=== PATIENT | female | born 2000 | race Caucasian/White ===

== ENCOUNTER 2020-04-09 14:57 | Inpatient (IN) | payer MEDICAID, SELFPAY ==
[2020-04-09 15:08] VITALS: BP 180/116; PULSE 110; RESP 22; TEMP 36.9; O2SAT 96; BMI 44.1
[2020-04-09 16:05] VITALS: BP 136/80; PULSE 114; RESP 16; O2SAT 98
--- NOTE | 2020-04-09 16:05 | ECG_ITS ---
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 Measurements Intervals [place] Rate: 109 P: 25 FL: 161 QRS: 41 QRSD: 71 T: 7 QT: 295 QTc: 399 Interpretive Statements SINUS TACHYCARDIA NONSPECIFIC T-WAVE ABNORMALITY ABNORMAL RHYTHM ECG No previous ECG available for comparison Electronically Signed On 04-09-2020 20:22:37 AMMUNITION OFFICER by Samson Rodriguez M.D. [id number]
--- NOTE | 2020-04-09 16:05 | XRR_ITS ---
PROCEDURE INFORMATION: Exam: XR Chest, 1 View Exam date and time: 04/09/2020 4:14 PM Age: 19 years old Clinical indication: Shortness of breath; Additional info: SOB TECHNIQUE: Imaging protocol: XR of the chest Views: 1 view. COMPARISON: No relevant prior studies available. FINDINGS: Lungs: Bilateral interstitial infiltrates, consistent with pulmonary edema versus bilateral pneumonia. Pleural space: No pleural effusion. No pneumothorax. Heart/Mediastinum: No cardiomegaly demonstrated. Bones/joints: Unremarkable. XR/XR chest 1V portable [id number] IMPRESSION: Bilateral interstitial infiltrates, consistent with pulmonary edema versus bilateral pneumonia.
--- NOTE | 2020-04-09 16:30 | ED_ITS ---
HPI - SOB/Dyspnea General: Chief Complaint: Shortness of Breath/Dyspnea Stated Complaint: shortness of breath/post Time Seen by Provider: 04/09/20 15:15 Source: patient Mode of arrival: ambulatory Limitations: no limitations History of Present Illness: HPI Narrative: The patient is a 19-year-old female who recently had a delivery of a live infant by section on 04/05/2020. She had a delivery done at [facility] in [place]. She had a because of intolerance of labor, gestational hypertension, maternal fever and morbid obesity and failure to progress. She was treated postoperatively with ampicillin and gentamicin and after some time it was switched to Zosyn and vancomycin because she continued to run fingers postoperatively. On day #3 she developed severe hypertension that did not respond to oral medications and she was transferred to the labor and delivery for management of the elevated blood pressure with magnesium sulfate. Apparently at that time the patient signed out AGAINST MEDICAL ADVICE. I got all the above information from her medical records. The patient states that she received very poor communication while she was there and was not informed as to why she was getting the medications she was getting. She did not feel very comfortable there and so signed out AGAINST MEDICAL ADVICE. The patient states that she has been feeling short of breath since yesterday and when she checked her oxygen saturation today it was in the 80s and because of these decided to come in here for evaluation. MD elicited complaint: shortness of breath Associated symptoms: Deny abdominal pain, fever(s), nausea, palpitations, p olydipsia, polyuria or vomiting Review of Systems General: Reports: 10 or more systems reviewed and unremarkable except in HPI and below Const: Denies: fever(s), chills or body aches Eyes: Denies: change in vision or blurry vision ENMT: Denies: throat pain, enlarged tonsils, odynophagia, hoarseness, mouth pain or swelling of lips/tongue Card: Denies: palpitations, irregular heart rhythm, edema or swelling of feet/ankles Resp: Reports: dyspnea and non-productive cough; Denies: productive cough GI: Denies: abdominal pain, nausea or vomiting : Denies: flank pain, difficulty voiding, dysuria, urinary frequency, urinary urgency or urinary hesitancy Musc: Denies: neck pain, back pain or extremity swelling Skin/Breast: Denies: rash, pruritus or erythema Neuro: Denies: headache(s), numbness in extremities or weakness in extremities Endo: Denies: polyuria, polydipsia or tired all the time PFSH ED PFSH: Medical History Anemia Bulimia Family History Other Patient denies medical problems Social History Smoking and tobacco status: never smoked Alcohol intake: never Physical Exam Const: COMMON NORMALS: no acute distress, average body habitus, patient oriented x3, no limitations, healthy appearing, alert and well nourished HENMT: COMMON NORMALS: normocephalic, atraumatic and moist oral mucous membranes HEAD & SCALP: normocephalic and atraumatic Neck/C-Spine: COMMON NORMALS: no meningeal signs and no JVD Resp: COMMON NORMALS: normal respiratory effort, No retractions, No use of accessory muscles, clear to auscultation bilaterally and percussion normal AUSCULTATION: clear to auscultation bilaterally PERCUSSION: percussion normal Cardio: COMMON NORMALS: no JVD, regular rate, regular rhythm, S1 normal heart sound present, S2 normal heart sound present, No gallops present (Cardio), No clicks present (Cardio), No murmurs present (Cardio), No rub (Cardio) and Peripheral pulses 2+ throughout RATE: regular rate RHYTHM: regular rhythm HEART SOUNDS: S1 normal heart sound present and S2 normal heart sound present PERIPHERAL PULSES: Peripheral pulses 2+ throughout GI: COMMON NORMALS: Normal to inspection, nondistended, normoactive bowel sounds present, Soft to palpation, non-tender, No hepatosplenomegaly present, no masses and no bruits PALPATION: Yes Soft to palpation and Yes No hepatosplenomegaly present Extremity: COMMON NORMALS: normal to inspection, full ROM, capillary refill normal, no calf tenderness and no pedal edema Neuro: COMMON NORMALS: patient oriented x3 SENSORIUM/ORIENTATION: Yes alert MENINGEAL SIGNS: Yes no meningeal signs Skin: COMMON NORMALS: no rashes or lesions noted, no wounds, turgor normal, no jaundice, no petechiae and no mottling GENERAL SKIN EXAM: no rashes or lesions noted and turgor normal Course Reevaluation(s): Reevaluation #1: Discussed her lab and imaging findings with her, as well as my conversation with the web support engineer and the car lot attendant. Her lab findings are concerning for cardiomyopathy and she is advised to be admitted to the hospital for further work-up. The patient would really like to be discharged home, however I explained to her the risks of discharge including worsening of her symptoms and even . I understand that she would like to stay with her baby however strongly counseled her to stay in the hospital. She eventually agreed to be admitted. Time: 19:20 Consultations: Consultation #1: Discussed the patient with Dr. Montanez, web support engineer on-call and she accepted the patient to her service but would like cardiology consult. Time: 19:09 Consultation #2: Discussed the patient with Dr. Rodriguez, car lot attendant. He would consult on this patient, however he wants me to order an echocardiogram for tonight. Time: 19:13 Vital Signs: Vital signs: Vital Signs Temperature 98.4 F 04/09/20 15:08 Pulse Rate 110 H 04/09/20 20:43 Respiratory Rate 18 04/09/20 20:43 Blood Pressure 155/85 04/09/20 20:43 Pulse Oximetry 96 04/09/20 20:43 MDM - SOB/Dyspnea MDM Narrative: Medical decision making narrative: 19-year-old female patient who had a delivery 4 days ago. Delivery and period was complicated by fever before delivery, postoperative fever as well as hypertension. The patient was not satisfied with the care she was receiving at [facility] in [place], so she signed out AGAINST MEDICAL ADVICE yesterday. Today she was short of breath and hypoxic at home. Evaluation in the emergency department is concerning for cardiomyopathy with significantly elevated proBNP levels, pulmonary edema on chest x-ray and CT of her lungs. She is given a dose of intravenous Lasix and is admitted to the cardiac stepdown unit for further evaluation and management. Medical Records: Attestation: I reviewed the patient's medical records. Lab Data: Attestation: I reviewed the patient's lab results. Labs: Lab Results 04/09/20 04/09/20 04/09/20 Range/Units 16:00 16:30 16:30 WBC 10.6 (4.5-13.0) 10^3/ uL RBC 3.44 L (4.1-5.3) 10^6/u L Hgb 9.4 L (11.5-15.3) g/dL Hct 30.1 L (37.0-47.0) % MCV 87.5 (81-99) fL MCH 27.3 L (28.0-34.0) pg MCHC 31.2 (30.0-36.0) g/dL RDW 14.5 (12.1-15.1) % Plt Count 358 (130-400) 10^3/c mm MPV 10.0 (7.4-10.4) fL Neut % (Auto) 78.1 % Lymph % (Auto) 12.4 % Gordon % (Auto) 6.6 % Eos % (Auto) 1.0 % Baso % (Auto) 0.4 % Neut # (Auto) 8.24 H (1.8-8.0) 10^3/u L Lymph # (Auto) 1.3 L (1.5-6.5) 10^3/u L Gordon # (Auto) 0.7 (0.2-0.9) 10^3/u L Eos # (Auto) 0.1 (0.0-0.8) 10^3/u L Baso # (Auto) 0.0 (0.0-0.1) 10^3/u L Nucleated RBC % (a uto) 0 % Nucleated RBCs # 0.0 /100WBC PT 13.90 (12.1-14.9) SECO NDS INR 1.03 (0.8-1.2) D-Dimer 2.48 H (0-0.59) ug/mIFE U Sodium 141 (136-145) mmol/L Potassium 3.6 (3.5-5.1) mmol/L Chloride 106 (98-107) mmol/L Carbon Dioxide 24 (22-29) mmol/L Anion Gap 14.6 (5-19) BUN 14 (6-20) mg/dL Creatinine 0.8 (0.5-0.9) mg/dL GFR Calculation 91.4 (90-130) mL/min Glucose 91 (65-115) mg/dL Calculated Osmolal ity 292 (285-295) mOsm/k g Lactic Acid (0.5-2.2) mmol/L Calcium 8.7 (8.5-10.5) mg/dL Total Bilirubin 0.2 (0.15-1.2) mg/dL AST 14 (0-32) U/L ALT 13 (0-33) U/L Alkaline Phosphata se 105 (35-105) IU/L NT-Pro-B Natriuret Pep 1701 H (0-125) pg/mL Total Protein 5.8 L (6.6-8.7) g/dL Albumin 2.9 L (3.5-5.2) g/dL Globulin 2.9 (1.3-4.6) g/dL Urine Color (Yellow) Urine Appearance (CLEAR) Urine pH (5-7) Ur Specific Gravit y (1.005-1.030) Urine Protein (Negative) Urine Glucose (UA) (Normal) Urine Ketones (Negative) Urine Blood (Negative) Urine Nitrate (Negative) Urine Bilirubin (Negative) Urine Urobilinogen (Negative) mg/dL Ur Leukocyte Christelle ase (Negative) Urine RBC (0-2) /hpf Urine WBC (0-5) /hpf Ur Squamous Epith Cells (0-5) /hpf Amorphous Sediment Urine Bacteria (NONE) /hpf Influenza Type A A g (Negative) Influenza Type B A g (Negative) SARS-CoV-2 Ag (Rap id) (Negative) 04/09/20 04/09/20 04/09/20 Range/Units 16:30 16:30 16:30 WBC (4.5-13.0) 10^3/ uL RBC (4.1-5.3) 10^6/u L Hgb (11.5-15.3) g/dL Hct (37.0-47.0) % MCV (81-99) fL MCH (28.0-34.0) pg MCHC (30.0-36.0) g/dL RDW (12.1-15.1) % Plt Count (130-400) 10^3/c mm MPV (7.4-10.4) fL Neut % (Auto) % Lymph % (Auto) % Gordon % (Auto) % Eos % (Auto) % Baso % (Auto) % Neut # (Auto) (1.8-8.0) 10^3/u L Lymph # (Auto) (1.5-6.5) 10^3/u L Gordon # (Auto) (0.2-0.9) 10^3/u L Eos # (Auto) (0.0-0.8) 10^3/u L Baso # (Auto) (0.0-0.1) 10^3/u L Nucleated RBC % (a uto) % Nucleated RBCs # /100WBC PT (12.1-14.9) SECO NDS INR (0.8-1.2) D-Dimer (0-0.59) ug/mIFE U Sodium (136-145) mmol/L Potassium (3.5-5.1) mmol/L Chloride (98-107) mmol/L Carbon Dioxide (22-29) mmol/L Anion Gap (5-19) BUN (6-20) mg/dL Creatinine (0.5-0.9) mg/dL GFR Calculation (90-130) mL/min Glucose (65-115) mg/dL Calculated Osmolal ity (285-295) mOsm/k g Lactic Acid 0.8 (0.5-2.2) mmol/L Calcium (8.5-10.5) mg/dL Total Bilirubin (0.15-1.2) mg/dL AST (0-32) U/L ALT (0-33) U/L Alkaline Phosphata se (35-105) IU/L NT-Pro-B Natriuret Pep (0-125) pg/mL Total Protein (6.6-8.7) g/dL Albumin (3.5-5.2) g/dL Globulin (1.3-4.6) g/dL Urine Color (Yellow) Urine Appearance (CLEAR) Urine pH (5-7) Ur Specific Gravit y (1.005-1.030) Urine Protein (Negative) Urine Glucose (UA) (Normal) Urine Ketones (Negative) Urine Blood (Negative) Urine Nitrate (Negative) Urine Bilirubin (Negative) Urine Urobilinogen (Negative) mg/dL Ur Leukocyte Christelle ase (Negative) Urine RBC (0-2) /hpf Urine WBC (0-5) /hpf Ur Squamous Epith Cells (0-5) /hpf Amorphous Sediment Urine Bacteria (NONE) /hpf Influenza Type A A g Negative (Negative) Influenza Type B A g Negative (Negative) SARS-CoV-2 Ag (Rap id) Negative (Negative) 04/09/20 Range/Units 18:25 WBC (4.5-13.0) 10^3/ uL RBC (4.1-5.3) 10^6/u L Hgb (11.5-15.3) g/dL Hct (37.0-47.0) % MCV (81-99) fL MCH (28.0-34.0) pg MCHC (30.0-36.0) g/dL RDW (12.1-15.1) % Plt Count (130-400) 10^3/c mm MPV (7.4-10.4) fL Neut % (Auto) % Lymph % (Auto) % Gordon % (Auto) % Eos % (Auto) % Baso % (Auto) % Neut # (Auto) (1.8-8.0) 10^3/u L Lymph # (Auto) (1.5-6.5) 10^3/u L Gordon # (Auto) (0.2-0.9) 10^3/u L Eos # (Auto) (0.0-0.8) 10^3/u L Baso # (Auto) (0.0-0.1) 10^3/u L Nucleated RBC % (a uto) % Nucleated RBCs # /100WBC PT (12.1-14.9) SECO NDS INR (0.8-1.2) D-Dimer (0-0.59) ug/mIFE U Sodium (136-145) mmol/L Potassium (3.5-5.1) mmol/L Chloride (98-107) mmol/L Carbon Dioxide (22-29) mmol/L Anion Gap (5-19) BUN (6-20) mg/dL Creatinine (0.5-0.9) mg/dL GFR Calculation (90-130) mL/min Glucose (65-115) mg/dL Calculated Osmolal ity (285-295) mOsm/k g Lactic Acid (0.5-2.2) mmol/L Calcium (8.5-10.5) mg/dL Total Bilirubin (0.15-1.2) mg/dL AST (0-32) U/L ALT (0-33) U/L Alkaline Phosphata se (35-105) IU/L NT-Pro-B Natriuret Pep (0-125) pg/mL Total Protein (6.6-8.7) g/dL Albumin (3.5-5.2) g/dL Globulin (1.3-4.6) g/dL Urine Color Yellow (Yellow) Urine Appearance Clear (CLEAR) Urine pH 7 (5-7) Ur Specific Gravit y 1.010 (1.005-1.030) Urine Protein Neg (Negative) Urine Glucose (UA) Norm (Normal) Urine Ketones 1+ H (Negative) Urine Blood 3+ H (Negative) Urine Nitrate Negative (Negative) Urine Bilirubin Neg (Negative) Urine Urobilinogen Norm (Negative) mg/dL Ur Leukocyte Christelle ase Negative (Negative) Urine RBC 5-10 H (0-2) /hpf Urine WBC 10-15 H (0-5) /hpf Ur Squamous Epith Cells Rare (0-5) /hpf Amorphous Sediment Not Reportable Urine Bacteria Trace (NONE) /hpf Influenza Type A A g (Negative) Influenza Type B A g (Negative) SARS-CoV-2 Ag (Rap id) (Negative) Imaging Data^: CTA Chest: Attestation: I personally reviewed and interpreted this imaging study as follows: Radiologist's impression: [address] [address] [address] Scan Report Signed Patient: Lo Cortes BUnit #: [id number] : 2000Acct#:[id number] Age/Sex: 19 / FADM Date: 04/09/20 Loc: ERRoom/Bed: Attending Dr: Ordering Provider/Ordering MD: Bryan Bryan MD, [facility] [place] of Service: 04/09/20 Procedure(s): CT angio chest PE protcl [id number] Accession Number(s): [id number] Report Number: [id number] PROCEDURE INFORMATION: Exam: CT Angiography Chest With Contrast Exam date and time: 04/09/2020 6:22 PM Age: 19 years old Clinical indication: Shortness of breath; Additional info: SOB TECHNIQUE: Imaging protocol: Computed tomographic angiography of the chest with intravenous contrast. 3D rendering (Not supervised by radiologist): MIP and/or 3D reconstructed images were created by the technologist. Radiation optimization: All CT scans at this facility use at least one of these dose optimization techniques: automated exposure control; mA and/or kV adjustment per patient size (includes targeted exams where dose is matched to clinical indication); or iterative reconstruction. Contrast material: OMNI 350; Contrast volume: 95 ml; Contrast route: INTRAVENOUS (IV); COMPARISON: CR (CHEST, ) 04/09/2020 4:12 PM RADIATION DOSE METRICS: Total DLP (mGy-cm): 587.49 FINDINGS: Pulmonary arteries: Pulmonary arteries are well opacified. Pulmonary arteries are normal in caliber. No filling defects are demonstrated. No evidence of pulmonary embolism. Aorta: The thoracic aorta appears unremarkable. No aneurysm or dissection demonstrated. Lungs: Prominence of the pulmonary interstitium bilaterally. Minimal airspace disease scattered throughout both lungs. Dependent atelectasis noted in the bilateral lower lobes. Pleural space: Small bilateral pleural effusions. No pneumothorax. Heart: Mild cardiomegaly is noted. No pericardial effusion. Lymph nodes: Unremarkable. No enlarged lymph nodes. Bones/joints: Unremarkable. No acute fracture. Soft tissues: Unremarkable. CT/CT angio chest PE protcl [id number] IMPRESSION: 1. Pulmonary arteries appear unremarkable. No evidence of pulmonary embolism. 2. No evidence of thoracic aortic aneurysm or dissection. 3. Mild cardiomegaly is noted. 4. Prominence of the pulmonary interstitium bilaterally. Minimal airspace disease scattered throughout both lungs. The appearance is likely represents pulmonary edema, although bilateral pneumonia can give a similar appearance. 5. Small bilateral pleural effusions. Radiation Dose CTDIVOL = (mGy): DLP = 587.49 (mGy-cm) Dictated By:Fracisco Johnson MD Signed By:Fracisco Johnson MDSigned Date/Time:04/09/201852 DD/ 51 CXR: Attestation: I personally reviewed and interpreted this imaging study as follows: Radiologist's impression: [address] [place] [address] XRay Report Signed Patient: Lo Cortes BUnit #: [id number] : 2000Acct#:[id number] Age/Sex: 19 / FADM Date: 04/09/20 Loc: ERRoom/Bed: Attending Dr: Ordering Provider/Ordering MD: Bryan Bryan MD, [facility] [place] of Service: 04/09/20 Procedure(s): XR chest 1V portable [id number] Accession Number(s): [id number] Report Number: [id number] PROCEDURE INFORMATION: Exam: XR Chest, 1 View Exam date and time: 04/09/2020 4:14 PM Age: 19 years old Clinical indication: Shortness of breath; Additional info: SOB TECHNIQUE: Imaging protocol: XR of the chest Views: 1 view. COMPARISON: No relevant prior studies available. FINDINGS: Lungs: Bilateral interstitial infiltrates, consistent with pulmonary edema versus bilateral pneumonia. Pleural space: No pleural effusion. No pneumothorax. Heart/Mediastinum: No cardiomegaly demonstrated. Bones/joints: Unremarkable. XR/XR chest 1V portable [id number] IMPRESSION: Bilateral interstitial infiltrates, consistent with pulmonary edema versus bilateral pneumonia. Dictated By:Fracisco Johnson MD Signed By:Fracisco Johnson MDSigned Date/Time:04/09/201626 DD/ 162 Echo: Radiologist's impression: [address] [address] Ultrasound Report Signed Patient: Lo Cortes BUnit #: [id number] : 2000Acct#:[id number] Age/Sex: 19 / FADM Date: 04/09/20 Loc: CSURoom/Bed: 103-[address]: Laura Montanez MD Ordering Provider/Ordering MD: Bryan Bryan MD, [facility] [place] of Service: 04/09/20 Procedure(s): CV echo complete* [id number] Accession Number(s): [id number] Report Number: [id number] Lo Cortes Age: 19 Gender: F : 2000 Exam Date: 04/09/2020 19:58 Ordering Phys: Bryan Bryan MD [facility] [place] Technologist: La Nena Srinivasan Exam Location: [facility] [place] Indication: POST 4 DAYS AND SOB BP: 122 / 93 HR: 109 Rhythm: Sinus Technical Quality: Fair MEASUREMENTS (Male / Female) Normal Values 2D ECHO LV Diastolic Diameter PLAX 4.9 cm 4.2 - 5.9 / 3.9 - 5.3 cm LV Systolic Diameter PLAX 3.2 cm LV Chamber Size 3.0 cm IVS Diastolic Thickness 1.6 cm 0.6 - 1.0 / 0.6 - 0.9 cm IVS Systolic Thickness 1.5 cm LVPW Diastolic Thickness 1.5 cm 0.6 - 1.0 / 0.6 - 0.9 cm LVPW Systolic Thickness 1.8 cm RV Chamber Size 3.7 cm LVOT Diameter 3.2 cm LV Ejection Fraction 2D Teich 64.5 % LV Ejection Fraction MOD 2C 60.7 % LV Ejection Fraction 2C AL 61.3 % LA Diameter 3.4 cm LA Width 2.7 cm LA Height 4.0 cm RA Width 4.1 cm RA Height 4.0 cm Aorta at Sinotubular Diameter 2.7 cm M-MODE LV Diastolic Diameter MM 5.1 cm 4.2 - 5.9 / 3.9 - 5.3 cm LV Systolic Diameter MM 3.4 cm LV Ejection Fraction MM Teich 63.4 % IVS Diastolic Thickness MM 1.4 cm 0.6 - 1.0 / 0.6 - 0.9 cm IVS Systolic Thickness MM 1.6 cm LVPW Diastolic Thickness MM 1.4 cm 0.6 - 1.0 / 0.6 - 0.9 cm LVPW Systolic Thickness MM 2.0 cm RV Diastolic Diameter MM 2.1 cm Aortic Annulus Diameter 1.7 cm LA Ao Ratio MM 1.5 MV E Point Septal Separation 0.5 cm DOPPLER AV Peak Velocity 213.3 cm/s LVOT Peak Velocity 136.7 cm/s AV Area Cont Eq vti 5.9 cm squared AV Area Cont Eq pk 5.1 cm squared MV Area PHT 7.0 cm squared Mitral E to A Ratio 0.8 MV E' Velocity 144.0 cm/s TR Peak Velocity 196.0 cm/s TR Peak Gradient 15.4 mmHg TR Mean Velocity 131.1 cm/s TR Mean Gradient 8.1 mmHg TR Velocity Time Integral 46.5 cm TV Peak E Velocity 116.0 cm/s Right Atrial Pressure 3.0 mmHg Pulmonary Artery Systolic Pressu 18.4 mmHg PV Peak Velocity 104.0 cm/s RV Acceleration Time 0.1 s RV Ejection Time 0.3 s RV AcT/ET 0.3 FINDINGS Left Ventricle Normal left ventricular size and systolic function, EF 58 %. No regional wall motion abnormalities. Right Ventricle The right ventricle is normal in size and function. Right Atrium The right atrium is normal in size. Left Atrium The left atrium is normal in size. Mitral Valve Trace mitral valve regurgitation. Aortic Valve No gross abnormalities noted Tricuspid Valve Trace tricuspid valve regurgitation. Pulmonic Valve No gross abnormalities noted Pericardium Normal pericardium without effusion. Aorta Normal ascending aorta dimension. CONCLUSIONS Normal left ventricular size and systolic function, EF 58 %. No regional wall motion abnormalities. Normal cardiac chamber sizes. Trace of mitral and tricuspid regurgitation. No significant valve abnormalities. No intracardiac masses. No pericardial effusion. No previous study is available for comparison. Dr Samson Rodriguez MD FAC (Electronically Signed) Final Date: 09 April 2020 20:42 S EKG Data^: EKG 1: Attestation: I personally reviewed and interpreted this EKG as follows: EKG Interpretation Date: 04/09/20 EKG interpretation time: 17:12 Interpretation: Sinus tachycardia. Heart rate [address] changes. Normal axis. Discharge Plan Discharge Patient Disposition: Admitted As Inpatient Admit Provider: Laura Montanez Clinical Impression: Cardiomyopathy during puerperium, delivered, with complication Condition: Stable Coding Level of Care Code ED Causticiser for Chg Fwd Exam Comprehensive
[2020-04-09 16:40] LABS: Basophils % 0.4 %; Eosinophils # 0.1 10^3/uL (0.0-0.8); Hematocrit 30.1 % (37.0-47.0); Hemoglobin 9.4 g/dL (11.5-15.3); Lymphocytes # 1.3 10^3/uL (1.5-6.5); Lymphocytes % 12.4 %; Mean Corpuscular HGB Conc 31.2 g/dL (30.0-36.0); Mean Corpuscular Hemoglobin 27.3 pg (28.0-34.0); Mean Corpuscular Volume 87.5 fL (81-99); Monocytes # 0.7 10^3/uL (0.2-0.9); Monocytes % 6.6 %; Neutrophils # 8.24 10^3/uL (1.8-8.0); Neutrophils % 78.1 %; Nucleated Red Blood Cells % 0 %; Platelet Count 358 10^3/cmm (130-400); Red Blood Count 3.44 10^6/uL (4.1-5.3); Red Cell Distribution Width 14.5 % (12.1-15.1); White Blood Count 10.6 10^3/uL (4.5-13.0)
[2020-04-09 17:04] LABS: INR 1.03 (0.8-1.2)
[2020-04-09 17:07] LABS: D Dimer 2.48 ug/mIFEU (0-0.59)
[2020-04-09 17:12] LABS: Lactic Sepsis W/Reflex 0.8 mmol/L (0.5-2.2)
[2020-04-09 17:25] LABS: Alanine Aminotransferase 13 U/L (0-33); Albumin Level 2.9 g/dL (3.5-5.2); Alkaline Phosphatase 105 IU/L (35-105); Anion Gap 14.6 (5-19); Aspartate Amino Transferase 14 U/L (0-32); Blood Urea Nitrogen 14 mg/dL (6-20); Calcium 8.7 mg/dL (8.5-10.5); Carbon Dioxide 24 mmol/L (22-29); Chloride 106 mmol/L (98-107); Creatinine Clr Calc Pharmacy 166.4045; Globulin 2.9 g/dL (1.3-4.6); Glomerular Filtration Rate 91.4 mL/min (90-130); Glucose 91 mg/dL (65-115); NT Pro B Type Natriuretic Pept 1701 pg/mL (0-125); Osmolality Calculated 292 mOsm/kg (285-295); Potassium 3.6 mmol/L (3.5-5.1); Sodium 141 mmol/L (136-145); Total Bilirubin 0.2 mg/dL (0.15-1.2); Total Protein 5.8 g/dL (6.6-8.7)
[2020-04-09 17:36] LABS: Influenza A by IFA Negative (Negative); Influenza B by IFA Negative (Negative); SARS Covid-2 Antigen Negative (Negative)
--- NOTE | 2020-04-09 17:47 | CTR_ITS ---
PROCEDURE INFORMATION: Exam: CT Angiography Chest With Contrast Exam date and time: 04/09/2020 6:22 PM Age: 19 years old Clinical indication: Shortness of breath; Additional info: SOB TECHNIQUE: Imaging protocol: Computed tomographic angiography of the chest with intravenous contrast. 3D rendering (Not supervised by radiologist): MIP and/or 3D reconstructed images were created by the technologist. Radiation optimization: All CT scans at this facility use at least one of these dose optimization techniques: automated exposure control; mA and/or kV adjustment per patient size (includes targeted exams where dose is matched to clinical indication); or iterative reconstruction. Contrast material: OMNI 350; Contrast volume: 95 ml; Contrast route: INTRAVENOUS (IV); COMPARISON: CR (CHEST, ) 04/09/2020 4:12 PM RADIATION DOSE METRICS: Total DLP (mGy-cm): 587.49 FINDINGS: Pulmonary arteries: Pulmonary arteries are well opacified. Pulmonary arteries are normal in caliber. No filling defects are demonstrated. No evidence of pulmonary embolism. Aorta: The thoracic aorta appears unremarkable. No aneurysm or dissection demonstrated. Lungs: Prominence of the pulmonary interstitium bilaterally. Minimal airspace disease scattered throughout both lungs. Dependent atelectasis noted in the bilateral lower lobes. Pleural space: Small bilateral pleural effusions. No pneumothorax. Heart: Mild cardiomegaly is noted. No pericardial effusion. Lymph nodes: Unremarkable. No enlarged lymph nodes. Bones/joints: Unremarkable. No acute fracture. Soft tissues: Unremarkable. CT/CT angio chest PE protcl [id number] IMPRESSION: 1. Pulmonary arteries appear unremarkable. No evidence of pulmonary embolism. 2. No evidence of thoracic aortic aneurysm or dissection. 3. Mild cardiomegaly is noted. 4. Prominence of the pulmonary interstitium bilaterally. Minimal airspace disease scattered throughout both lungs. The appearance is likely represents pulmonary edema, although bilateral pneumonia can give a similar appearance. 5. Small bilateral pleural effusions. Radiation Dose CTDIVOL = (mGy): DLP = 587.49 (mGy-cm)
[2020-04-09] MEDS: iohexol 350 mg/mL 100 mL Btl IV (18:30)
[2020-04-09 19:10] LABS: Blood Urine 3+ (Negative); Glucose Urine UA Norm (Normal); Protein Urine Neg (Negative); Urine Appearance Clear (CLEAR); Urine Color Yellow (Yellow); pH Urine 7 (5-7)
[2020-04-09 19:11] LABS: Add Urine Microscopic? YES; Bilirubin Urine Neg (Negative); Ketones Urine 1+ (Negative); Leukocyte Esterase Urine Negative (Negative); Nitrate Urine Negative (Negative); Urobilinogen Urine Norm (Negative)
[2020-04-09 19:14] LABS: Bacteria Urine TRACE /hpf; Squamous Epithelial Cell Urine RARE /hpf (0-5)
--- NOTE | 2020-04-09 19:16 | USCV_ITS ---
Lo Cortes Age: 19 Gender: F : 2000 Exam Date: 04/09/2020 19:58 Ordering Phys: Bryan Bryan MD [facility] [place] Technologist: La Nena Srinivasan Exam Location: [facility] – [place] Indication: POST 4 DAYS AND SOB BP: 122 / 93 HR: 109 Rhythm: Sinus Technical Quality: Fair MEASUREMENTS (Male / Female) Normal Values 2D ECHO LV Diastolic Diameter PLAX 4.9 cm 4.2 - 5.9 / 3.9 - 5.3 cm LV Systolic Diameter PLAX 3.2 cm LV Chamber Size 3.0 cm IVS Diastolic Thickness 1.6 cm 0.6 - 1.0 / 0.6 - 0.9 cm IVS Systolic Thickness 1.5 cm LVPW Diastolic Thickness 1.5 cm 0.6 - 1.0 / 0.6 - 0.9 cm LVPW Systolic Thickness 1.8 cm RV Chamber Size 3.7 cm LVOT Diameter 3.2 cm LV Ejection Fraction 2D Teich 64.5 % LV Ejection Fraction MOD 2C 60.7 % LV Ejection Fraction 2C AL 61.3 % LA Diameter 3.4 cm LA Width 2.7 cm LA Height 4.0 cm RA Width 4.1 cm RA Height 4.0 cm Aorta at Sinotubular Diameter 2.7 cm M-MODE LV Diastolic Diameter MM 5.1 cm 4.2 - 5.9 / 3.9 - 5.3 cm LV Systolic Diameter MM 3.4 cm LV Ejection Fraction MM Teich 63.4 % IVS Diastolic Thickness MM 1.4 cm 0.6 - 1.0 / 0.6 - 0.9 cm IVS Systolic Thickness MM 1.6 cm LVPW Diastolic Thickness MM 1.4 cm 0.6 - 1.0 / 0.6 - 0.9 cm LVPW Systolic Thickness MM 2.0 cm RV Diastolic Diameter MM 2.1 cm Aortic Annulus Diameter 1.7 cm LA Ao Ratio MM 1.5 MV E Point Septal Separation 0.5 cm DOPPLER AV Peak Velocity 213.3 cm/s LVOT Peak Velocity 136.7 cm/s AV Area Cont Eq vti 5.9 cm squared AV Area Cont Eq pk 5.1 cm squared MV Area PHT 7.0 cm squared Mitral E to A Ratio 0.8 MV E' Velocity 144.0 cm/s TR Peak Velocity 196.0 cm/s TR Peak Gradient 15.4 mmHg TR Mean Velocity 131.1 cm/s TR Mean Gradient 8.1 mmHg TR Velocity Time Integral 46.5 cm TV Peak E Velocity 116.0 cm/s Right Atrial Pressure 3.0 mmHg Pulmonary Artery Systolic Pressu 18.4 mmHg PV Peak Velocity 104.0 cm/s RV Acceleration Time 0.1 s RV Ejection Time 0.3 s RV AcT/ET 0.3 FINDINGS Left Ventricle Normal left ventricular size and systolic function, EF 58 %. No regional wall motion abnormalities. Right Ventricle The right ventricle is normal in size and function. Right Atrium The right atrium is normal in size. Left Atrium The left atrium is normal in size. Mitral Valve Trace mitral valve regurgitation. Aortic Valve No gross abnormalities noted Tricuspid Valve Trace tricuspid valve regurgitation. Pulmonic Valve No gross abnormalities noted Pericardium Normal pericardium without effusion. Aorta Normal ascending aorta dimension. CONCLUSIONS Normal left ventricular size and systolic function, EF 58 %. No regional wall motion abnormalities. Normal cardiac chamber sizes. Trace of mitral and tricuspid regurgitation. No significant valve abnormalities. No intracardiac masses. No pericardial effusion. No previous study is available for comparison. Dr Samson Rodriguez MD FACC (Electronically Signed) Final Date: 09 April 2020 20:42 S
[2020-04-09 20:11] VITALS: BP 145/85; PULSE 112; RESP 18; O2SAT 95
[2020-04-09 20:43] VITALS: BP 155/85; PULSE 110; RESP 18; O2SAT 96
--- NOTE | 2020-04-09 20:46 | P.CONIM_ITS ---
Providers/Reason For Consult Consulting Physican/Specialty*: RUBENS Rodriguez MD/cardiology Reason for Consult*: Patient with the shortness of breath and elevated BNP Attending Physician: Laura Montanez MD Primary Care Provider: ULISSES Coronel History of Present Illness History of Present Illness Lo Cortes is a 19 year old female who is admitted to the hospital through the emergency room, where she presented with complaints of progressive shortness of breath and leg swelling. Patient apparently had a at the [facility] where she was initially admitted for induction of labor. Currently the plug patient, there was no progression of the labor. Based on the emergency room records, she had some features of preeclampsia, fever and also there were some signs of distress. She underwent a on the . After , she had some accelerated hypertension for which she received magnesium and antihypertensive medications. Details are not known. She also was told to have placental infection. She received multiple antibiotics in the hospital. She was discharged home on labetalol for blood pressure control. She has been noticing swelling of the lower extremities for the last couple of days. Last evening, she became acutely short of breath. Further worsening of the shortness of breath, she came to the hospital today. She has no fever or chills. No cough. Denies any chest pain or palpitations. No other specific complaints. She is morbidly obese. This is her first . The baby seems to be doing okay at this time and is at home being taken care of by her . She has no previous history for hypertension, diabetes or dyslipidemia. She has a family history of high blood pressure. No family history for any premature atherosclerotic heart disease. She was found to have elevated BNP of 1701. Her hemoglobin was 9.4. White cell count was 10.6. The CT in the emergency room revealed no evidence of pulmonary embolism. Apparently the patient signed out AMA from the [facility] since she was not getting enough information as to why she is in the hospital Review of Systems Narrative: CONSTITUTIONAL: No fever or chills. EYES: No blurring of vision or other visual disturbances lately. ENT: No hoarseness of voice, auditory disturbances or sore throat. CARDIOVASCULAR: As mentioned above. RESPIRATORY: Shortness of breath as mentioned above. GASTROINTESTINAL: No hematemesis or melena. GENITOURINARY: No dysuria or hematuria. INTEGUMENTARY: No skin rashes or history of skin cancer. NEURO: No transient ischemic attacks or amaurosis. PSYCHIATRIC: No history of psychosis or major depression. HEMATOLOGIC: No bleeding disorders or significant anemia. ENDOCRINE: No history of polyuria or polydipsia. MUSCULOSKELETAL: No recent joint pain or swelling. ALLERGY/IMMUNOLOGY: As mentioned above. Meds/Allergies Home Medications and Allergies Home Medications Medication Instructions Recorded Confirmed Last Taken Type amoxicillin 125 mg PO DAILY@0800 04/09/20 04/09/20 04/09/20 History ibuprofen 600 mg PO Q6H PRN 04/09/20 04/09/20 04/09/20 History labetalol 200 mg PO Q8H 04/09/20 04/09/20 04/09/20 History levothyroxine 88 mcg PO DAILY@0800 04/09/20 04/09/20 04/09/20 History oxycodone 5 mg PO Q4H PRN 04/09/20 04/09/20 04/09/20 History Allergies Allergy/AdvReac Type Severity Reaction Status Date / Time No Known Allergies Allergy Verified 04/24/19 05:43 PFSH Acute PFSH: Medical History Anemia Bulimia Family History Other Patient denies medical problems Social History Smoking and tobacco status: never smoked Alcohol intake: never Vitals/I&O/Wt Last Vital Signs Temp 98.4 F 04/09/20 15:08 Pulse 110 H 04/09/20 20:43 Resp 18 04/09/20 20:43 BP 155/85 04/09/20 20:43 Pulse Ox 96 04/09/20 20:43 Weight last 48 hrs Weight 299 lb Physical Exam Narrative: EXAM NARRATIVE: GENERAL: The patient is alert and oriented times three. Slightly tachypneic. Afebrile. HEENT: No significant pallor, icterus or lymphadenopathy. The pupils are reactant to light. Oral cavity: There are no mucous membrane lesions. Funduscopic examination: The fundus is not visualized NECK: Trachea appears to be central. No masses noted. No JVD or thyromegaly appreciated. No carotid bruit. RESPIRATORY: Chest is symmetrical. No intercostals muscle retraction or any accessory muscle activation. There is no chest wall tenderness. Breath sounds are heard bilaterally. No rales or rhonchi heard. No evidence of any consolidation. BREASTS: Deferred. HEART: The PMI could not be palpated. No palpable precordial events. S1 and S2 are normal. No S3 or S4 heard. No pericardial rub or any click heard. ABDOMEN: No vessel pulsations or distention. No tenderness. No organomegaly appreciated. No abdominal bruit. Bowel sounds are normally heard. : Deferred. RECTAL: Deferred. LYMPHATIC: No lymphadenopathy noted in the neck or groin. EXTREMITIES: 2+ edema both lower extremities. No cyanosis. MUSCULOSKELETAL: No acute joint deformities or swelling. SKIN: There are no significant scars or skin rash noted. NEUROPSYCHIATRIC: The patient is alert and oriented x3. Appears to be in a good mood. The higher functions are grossly within normal limits. No tremors or rigidity noted. Data Labs: Other Labs: Laboratory Last Values WBC 10.6 10^3/uL (4.5 -13.0) 04/09/20 16:00 RBC 3.44 10^6/uL (4.1 -5.3) L 04/09/20 16:00 Hgb 9.4 g/dL (11.5-15 .3) L 04/09/20 16:00 Hct 30.1 % (37.0-47.0 ) L 04/09/20 16:00 MCV 87.5 fL (81-99) 04/09/20 16:00 MCH 27.3 pg (28.0-34. 0) L 04/09/20 16:00 MCHC 31.2 g/dL (30.0-3 6.0) 04/09/20 16:00 RDW 14.5 % (12.1-15.1 ) 04/09/20 16:00 Plt Count 358 10^3/cmm (130 -400) 04/09/20 16:00 MPV 10.0 fL (7.4-10.4 ) 04/09/20 16:00 Neut % (Auto) 78.1 % 04/09/20 16:00 Lymph % (Auto) 12.4 % 04/09/20 16:00 [place] % (Auto) 6.6 % 04/09/20 16:00 Eos % (Auto) 1.0 % 04/09/20 16:00 Baso % (Auto) 0.4 % 04/09/20 16:00 Neut # (Auto) 8.24 10^3/uL (1.8 -8.0) H 04/09/20 16:00 t Lymph # (Auto) 1.3 10^3/uL (1.5- 6.5) L 04/09/20 16:00 [place] # (Auto) 0.7 10^3/uL (0.2- 0.9) 04/09/20 16:00 Eos # (Auto) 0.1 10^3/uL (0.0- 0.8) 04/09/20 16:00 Baso # (Auto) 0.0 10^3/uL (0.0- 0.1) 04/09/20 16:00 Nucleated RBC % (a uto) 0 % 04/09/20 16:00 Nucleated RBCs # 0.0 /100WBC 04/09/20 16:00 PT 13.90 SECONDS (12 .1-14.9) 04/09/20 16:30 INR 1.03 (0.8-1.2) 04/09/20 16:30 D-Dimer 2.48 ug/mIFEU (0- 0.59) H 04/09/20 16:30 Sodium 141 mmol/L (136-1 45) 04/09/20 16:30 Potassium 3.6 mmol/L (3.5-5 .1) 04/09/20 16:30 Chloride 106 mmol/L (98-10 7) 04/09/20 16:30 Carbon Dioxide 24 mmol/L (22-29) 04/09/20 16:30 Anion Gap 14.6 (5-19) 04/09/20 16:30 BUN 14 mg/dL (6-20) 04/09/20 16:30 Creatinine 0.8 mg/dL (0.5-0. 9) 04/09/20 16:30 GFR Calculation 91.4 mL/min (90-1 30) 04/09/20 16:30 Glucose 91 mg/dL (65-115) 04/09/20 16:30 Calculated Osmolal ity 292 mOsm/kg (285- 295) 04/09/20 16:30 Lactic Acid 0.8 mmol/L (0.5-2 .2) 04/09/20 16:30 Calcium 8.7 mg/dL (8.5-10 .5) 04/09/20 16:30 Total Bilirubin 0.2 mg/dL (0.15-1 .2) 04/09/20 16:30 AST 14 U/L (0-32) 04/09/20 16:30 ALT 13 U/L (0-33) 04/09/20 16:30 Alkaline Phosphata se 105 IU/L (35-105) 04/09/20 16:30 NT-Pro-B Natriuret Pep 1701 pg/mL (0-125 ) H 04/09/20 16:30 Total Protein 5.8 g/dL (6.6-8.7 ) L 04/09/20 16:30 Albumin 2.9 g/dL (3.5-5.2 ) L 04/09/20 16:30 Globulin 2.9 g/dL (1.3-4.6 ) 04/09/20 16:30 Urine Color Yellow (Yellow) 04/09/20 18:25 Urine Appearance Clear (CLEAR) 04/09/20 18:25 Urine pH 7 (5-7) 04/09/20 18:25 Ur Specific Gravit y 1.010 (1.005-1.0 30) 04/09/20 18:25 Urine Protein Neg (Negative) 04/09/20 18:25 Urine Glucose (UA) Norm (Normal) 04/09/20 18:25 Urine Ketones 1+ (Negative) H 04/09/20 18:25 Urine Blood 3+ (Negative) H 04/09/20 18:25 Urine Nitrate Negative (Negati ve) 04/09/20 18:25 Urine Bilirubin Neg (Negative) 04/09/20 18:25 Urine Urobilinogen Norm mg/dL (Negat casi) 04/09/20 18:25 Ur Leukocyte Christelle ase Negative (Negati ve) 04/09/20 18:25 Urine RBC 5-10 /hpf (0-2) H 04/09/20 18:25 Urine WBC 10-15 /hpf (0-5) H 04/09/20 18:25 Ur Squamous Epith Cells Rare /hpf (0-5) 04/09/20 18:25 Amorphous Sediment Not Reportable 04/09/20 18:25 Urine Bacteria Trace /hpf (NONE) 04/09/20 18:25 Influenza Type A A g Negative (Negati ve) 04/09/20 16:30 Influenza Type B A g Negative (Negati ve) 04/09/20 16:30 SARS-CoV-2 Ag (Rap id) Negative (Negati ve) 04/09/20 16:30 Imaging^: Echo: My impression: Normal left ventricular size and systolic function, EF 58 %. No regional wall motion abnormalities. Normal cardiac chamber sizes. Trace of mitral and tricuspid regurgitation. No significant valve abnormalities. No intracardiac masses. No pericardial effusion. No previous study is available for comparison. CTA Chest: Radiologist's impression: Pulmonary arteries appear unremarkable. No evidence of pulmonary embolism. 2. No evidence of thoracic aortic aneurysm or dissection. 3. Mild cardiomegaly is noted. 4. Prominence of the pulmonary interstitium bilaterally. Minimal airspace disease scattered throughout both lungs. The appearance is likely represents pulmonary edema, although bilateral pneumonia can give a similar appearance. 5. Small bilateral pleural effusions. EKG^: EKG 1: My Interpretation: Sinus tachycardia with a rate of 109/min no significant ST-T changes. A&P Assessment and plan (1) Acute diastolic heart failure: Most likely related to the hypertension. Patient may be treated with a Lasix 40 mg q. 8 hours x 3 with potassium 20 mg p.o. 3 times a day. Patient has no evidence of liver injury,, thrombocytopenia or proteinuria. Status: Acute (2) hypertension: Currently the blood pressure is a stage II. She may be kept on the labetalol. Her blood pressure needs to be closely monitored. May consider adding nifedipine, if the blood pressure does not get under control. Status: Acute Additional A&P Information Repeat BMP in the morning. Troponin T on the blood in the lab Based on the clinical progress, further recommendations will be made. The echocardiographic findings are discussed with the patient. 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
[2020-04-09] MEDS: FUROsemide 10 mg/mL SDV 4mL 40 MG IVP (20:58)
--- NOTE | 2020-04-09 21:30 | PC.NURSE ---
Spoke with Dr. Rodriguez regarding this dose of lasix. ED administered lasix upon the patient's arrival to the unit. Dr. Rodriguez agreed that this dose would be to close to the previous dose and for me to skip this dose and resume in the AM.
[2020-04-09 22:00] VITALS: PULSE 100
[2020-04-09 23:52] VITALS: BP 167/108; PULSE 117; RESP 40; TEMP 36.6; O2SAT 94
[2020-04-10] VITALS (58 sets, daily range): BP systolic 142–167; BP diastolic 77–113; PULSE 48–120; RESP 6–48; TEMP 36.8–37.2; O2SAT 90–98
--- NOTE | 2020-04-10 00:10 | PC.NURSE ---
Spoke with Dr. Rodriguez regarding this patient's midnight blood pressure of 167/108. Received telephone order with readback to start the patient's labetalol 200mg Q8hr.
[2020-04-10] MEDS: labetalol 200 mg Tablet PO ×4 (00:20→19:05)
[2020-04-10 00:44] LABS: Glucose Point of Care 133 mg/dL (70-110)
[2020-04-10] MEDS: FUROsemide 10 mg/mL SDV 4mL 40 MG IVP ×3 (04:50→20:30)
[2020-04-10 07:07] LABS: Anion Gap 16.4 (5-19); Blood Urea Nitrogen 11 mg/dL (6-20); Carbon Dioxide 24 mmol/L (22-29); Chloride 106 mmol/L (98-107); Glomerular Filtration Rate 79.8 mL/min (90-130); Glucose 80 mg/dL (65-115); Osmolality Calculated 294 mOsm/kg (285-295); Potassium 3.4 mmol/L (3.5-5.1); Sodium 143 mmol/L (136-145)
[2020-04-10] MEDS: potassium chloride ER 20 mEq Tablet PO ×3 (08:54→20:28)
--- NOTE | 2020-04-10 09:13 | PC.CHAP ---
Pastoral Care Encounter/Spiritual Assessment Type of Contact [] Declined independent insurance adjuster visit [] Patient/Family/Request visit [] Outpatient visit [] Follow-up visit [] Physician referral [] Code/Alert [x] Routine visit [] Staff referral [] Actively dying [] Patient sleeping [] Family support [] [] Out of room [] Palliative care [] [] Receiving care in room [] Pre-surgical visit [] Trauma [] Long length of stay [] ICU visit [] Other: Relational/Emotional Strength [] Patient feels connected with others/family/visitors/staff [] Distress [] Loneliness/isolation [] Abandonment Spirituality of Patient [] Person of Elodia [] Attends Anabaptism of their Elodia [] Believes in Prayer [] Reads Bible or Baptist materials [] There are Spiritual issues to be addressed 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 Interventions [x] Prayer [x] Active listening [x] Non-anxious presence [x] Spiritual/emotional support [] Crisis/trauma care [] Spiritual counseling [] Bereavement support [] Provided bereavement packet [] Provided Bible/devotional materials [] Provided toy/stuffed animal, coloring book to patient or family member [] Provided Communion [] Anointing/[place] [] Salvation [x] Completed spiritual assessment [] Other: Impact on Illness or Injury [] Angry [] Fearful [] Anxious [] Often cries [] Exhaustion [] Unable to work [] Unable to attend druze [] Unable to walk/stand [] Unable to read [] Unable to drive [] Unable to eat/drink [] Unable to sleep [] Unable to be with family [] Patient intubated [] Other: Summary breathing better, blood pressure being addressed... 4 day old baby girl at home... Time spent with patient 10 min
--- NOTE | 2020-04-10 09:51 | PM.PN ---
Subjective Subjective: Interval history: Patient is feeling much better. She has no chest pain. Her shortness of breath is significantly improved. No fever, chills or cough. Blood pressure still remains uncontrolled. Medications: Reviewed: Yes Medication Review Details: Current Medications Furosemide (Furosemide 10 Mg/Ml Sdv 4ml) 40 mg IVP Q8H [facility] Last Admin: 04/10/20 04:50 Dose: 40 mg Documented by: Labetalol HCl (Labetalol 200 Mg Tablet) 200 mg PO Q8H [facility] Last Admin: 04/10/20 08:54 Dose: 200 mg Documented by: Potassium Chloride (Potassium Chloride Er 20 Meq Tablet) 20 meq PO TID [facility] Stop: 04/10/20 21:00 Last Admin: 04/10/20 08:54 Dose: 20 meq Documented by: Vitals/I&O/Wt Last Vital Signs Temp 98.4 F 04/10/20 08:00 Pulse 100 04/10/20 08:00 Resp 15 04/10/20 08:00 BP 162/104 04/10/20 08:00 Pulse Ox 95 04/10/20 08:00 04/09/20 04/10/20 04/10/20 22:59 06:59 14:59 Intake Total 150 / 150 500 / 650 Output Total 3000 / 3000 2500 / 2500 Balance 150 / 150 -2500 / -2350 -2500 / -2500 Weight last 48 hrs Weight 299 lb Physical Exam Narrative: EXAM NARRATIVE: GENERAL: The patient is alert and oriented times three. Not in any acute distress. HEENT: No significant pallor, icterus or lymphadenopathy.Oral cavity: There are no mucous membrane lesions. NECK: Trachea appears to be central. No masses noted. No JVD or thyromegaly appreciated. RESPIRATORY: Chest is symmetrical. No intercostals muscle retraction or any accessory muscle activation. There is no chest wall tenderness. Breath sounds are heard bilaterally. No rales or rhonchi heard. No evidence of any consolidation. BREASTS: Deferred. HEART: The heart sounds are normal. No S3 or S4. No significant murmurs. No pericardial rub ABDOMEN: No vessel pulsations or distention. No tenderness. No organomegaly appreciated. Bowel sounds are normally heard. : Deferred. RECTAL: Deferred. LYMPHATIC: No lymphadenopathy noted in the neck or groin. EXTREMITIES: 1+ edema of both lower extremities. No cyanosis. MUSCULOSKELETAL: No acute joint deformities or swelling SKIN: There are no significant rashes or ecchymosis NEUROPSYCHIATRIC: The patient is alert and oriented x3. Appears to be in a good mood. No tremors or rigidity noted. Data : 04/09/20 16:00 04/10/20 06:13 A&P Assessment and plan (1) Acute diastolic heart failure: The heart failure is getting compensated. She has no evidence of proteinuria. No liver injury or kidney injury. Platelet counts are within normal limits. Status: Acute (2) hypertension: I may start her on nifedipine, if the labetalol alone is not controlling the blood pressure. Status: Acute (3) Anemia: Management as per the primary Status: Acute Additional A&P Information Patient blood pressure will be closely monitored. I may start her on p.o. 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
--- NOTE | 2020-04-10 16:07 | P.HP_ITS ---
Providers/Chief Complaint Admitting Physician: Laura Montanez MD Primary Care Provider: ULISSES Coronel Chief Complaint: low 02/tested neg for covid History of Present Illness Lo Cortes is a 19 year old female who is one week and presented to the ER with complaints of being short of air. She had an interesting shawn/post course. She presented for a regular OB exam on 03/29 and was found to have hypertension 160's/90's. She was beta strep positive. She was admitted and an induction started. She failed to progress and a section was performed on 04/02. the baby had a fever at and the mother (patient) was started on Amp and Gent. She continued to spike fevers and the antibiotics were changed to Zosyn and Vancomycin. The patient had elevated blood pressures on 04/07 and they recommended starting Magnesium Sulfate. She refused and signed out AMA on the evening of 04/07. On discharge, she was given a script for labetolol and a pulse oximeter. On 04/09, the patient had a sudden onset of shortness of air. Her O2 saturation was 86%. Her sister is an RN and recommended that she come to the ER immediately. She presented to the ER and was found to have normal pulse oximetry, but she had high blood pressure 160/100. She underwent CT scan and Xray which showed an enlarged heart as well as pulmonary edema. She was admitted for management and a cardiology consult was obtained. There was a suggestion of cardiomyopathy. An Echo performed showed an EF of 58%. Review of Systems General: Reports: 10 or more systems reviewed and unremarkable except in HPI and below Medications/Allergies Home Medications Medication Instructions Recorded Confirmed Last Taken Type amoxicillin 125 mg PO DAILY@0800 04/09/20 04/09/20 04/09/20 History ibuprofen 600 mg PO Q6H PRN 04/09/20 04/09/20 04/09/20 History labetalol 200 mg PO Q8H 04/09/20 04/09/20 04/09/20 History levothyroxine 88 mcg PO DAILY@0800 04/09/20 04/09/20 04/09/20 History oxycodone 5 mg PO Q4H PRN 04/09/20 04/09/20 04/09/20 History Allergies Allergy/AdvReac Type Severity Reaction Status Date / Time No Known Allergies Allergy Verified 04/24/19 05:43 PFSH Acute PFSH: Medical History (Updated 04/10/20 @ 09:54 by Samson Rodriguez MD) Anemia Bulimia Family History Other Patient denies medical problems Social History Smoking and tobacco status: never smoked Alcohol intake: never Female Reproductive History: Date of last menstrual period: 07/13/19 Vitals/I&O/Wt Last Vital Signs Temp 98.9 F 04/10/20 16:00 Pulse 89 04/10/20 16:00 Resp 19 H 04/10/20 16:00 BP 156/98 04/10/20 16:00 Pulse Ox 98 04/10/20 16:00 04/10/20 04/10/20 04/10/20 06:59 14:59 22:59 Intake Total 500 / 650 480 / 480 Output Total 3000 / 3000 3250 / 3250 1500 / 4750 Balance -2500 / -2350 -2770 / -2770 -1500 / -4270 Weight last 48 hrs Weight 299 lb Physical Exam Narrative: EXAM NARRATIVE: The patient is lying comfortably in bed. She is not in any distress Const: COMMON NORMALS: no acute distress and patient oriented x3 GENERAL APPEARANCE: cooperative, comfortable and well kempt ORIENTATION/CONSCIOUSNESS: Yes awake, Yes oriented to person, Yes oriented to place and Yes oriented to time HENMT: COMMON NORMALS: normocephalic and atraumatic NOSE: Normal external nose present Resp: COMMON NORMALS: normal respiratory effort and No retractions EFFORT & INSPECTION: Yes able to speak in complete sentences GI: COMMON NORMALS: Normal to inspection, nondistended, normoactive bowel sounds present, Soft to palpation and non-tender INSPECTION: Yes normal to inspection PALPATION: Yes Soft to palpation Extremity: COMMON NORMALS: full ROM, no calf tenderness and no pedal edema (3+ pitting edema) Psych: COMMON NORMALS: mental status grossly normal, Normal thought process present, cooperative, normal affect and speech normal ATTITUDE: Yes calm and Yes engaged ACTIVITY/MOTOR BEHAVIOR: Yes appropriate eye contact SPEECH: Yes normal speech THOUGHT PROCESS: Normal thought process present THOUGHT CONTENT: Yes Normal thought content present ATTENTION/CONCENTRATION: Yes attention grossly intact INSIGHT: Good insight present (Psych) JUDGEMENT: Good judgement present (Psych) Skin: COMMON NORMALS: no rashes or lesions noted WOUNDS: Yes surgical site (clean/dry and covered) Data : 04/09/20 16:00 04/10/20 06:13 A&P Assessment and plan (1) hypertension: hypertension has been managed on labetalol Normal cardiac echo. No evidence of cardiomyopathy Diuresis with lasix continues to pull large amounts of fluid from patient. I<<<O Continue with current plan. Patient is feeling much better. Likely plan for discharge tomorrow Status: Acute Attestations Medical Necessity Statement*: The patient has an acute condition which requires a minimum of two nights hospital stay. 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
--- NOTE | 2020-04-10 18:11 | PC.NURSE ---
PATIENT'S BLOOD PRESSURES STILL NOTED TO BE ELEVATED. DR. VAUGHN ORDERED PROCARDIA, HOWEVER THE PATIENT STATED THAT SHE HAS AN ADVERSE REACTION TO PROCARDIA. SHE STATED THAT SHE HAS SEVERE TACHYCARDIA AND HEART PALPITATIONS. MEDICATION DISCONTINUED AND PROCARDIA ADDED TO HER ALLERGY LIST. DR. VAUGHN THEN ORDERED LABETOLOL DOSE TO BE INCREASED TO 400MG Q8H AND GIVE A ONE TIME DOSE OF 200MG LABETOLOL NOW.
[2020-04-11] VITALS (7 sets, daily range): BP systolic 135–165; BP diastolic 77–102; PULSE 64–96; RESP 14–32; TEMP 36.3–37.4; O2SAT 96–100
--- NOTE | 2020-04-11 00:05 | PC.NURSE ---
Spoke with Dr. 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 The patient's HR has at the lowest gotten down to 48 this evening. The patient's midnight blood pressure is 155/90. I advised Dr. Mclean of the alterations to the labetalol dosage today and of the patient's reported allergy to nifedipine. At this time telephone order with readback given to hold the midnight labetalol and no additional orders at this time.
[2020-04-11] MEDS: FUROsemide 10 mg/mL SDV 4mL 40 MG IVP (05:03)
--- NOTE | 2020-04-11 06:55 | ECG_ITS ---
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 Measurements Intervals [place] Rate: 74 P: 3 NC: 147 QRS: 42 QRSD: 82 T: 29 QT: 384 QTc: 427 Interpretive Statements SINUS RHYTHM WITH SINUS ARRHYTHMIA Compared to ECG 04/09/2020 17:12:19 Sinus tachycardia no longer present T-wave abnormality no longer present Electronically Signed On 04-11-2020 20:23:01 CLIENT SERVICE COORDINATOR by Linda Rios M.D. [id number]
--- NOTE | 2020-04-11 08:46 | P.PN_ITS ---
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 Her labetalol was increased to 400 mg Q 8 hours, but this caused bradycardia. This was stopped and 200 mg Q 8 hours restarted. Her blood pressures have continued to be 160/90-100's. She feels well. She denies any pain or shortness of air. she is very anxious this morning. she wants to go home Vitals/I&O/Wt Last Vital Signs Temp 97.3 F L 04/11/20 07:10 Pulse 77 04/11/20 07:10 Resp 14 04/11/20 07:10 BP 165/94 04/11/20 07:10 Pulse Ox 97 04/11/20 07:10 04/10/20 04/11/20 04/11/20 22:59 06:59 14:59 Intake Total 480 / 960 120 / 120 Output Total 1950 / 5200 3120 / 8320 Balance -1470 / -4240 -3120 / -7360 120 / 120 Weight last 48 hrs Weight 299 lb Physical Exam Const: COMMON NORMALS: no acute distress, patient oriented x3 and alert NUTRITIONAL APPEARANCE: obese morbidly obese ORIENTATION/CONSCIOUSNESS: Yes awake HENMT: COMMON NORMALS: normocephalic HEAD & SCALP: normal to inspection and normocephalic Resp: COMMON NORMALS: normal respiratory effort and No retractions EFFORT & INSPECTION: Yes able to speak in complete sentences GI: COMMON NORMALS: Normal to inspection, nondistended, normoactive bowel so unds present, Soft to palpation and non-tender INSPECTION: Yes normal to inspection and Yes central obesity PALPATION: Yes Soft to palpation Neuro: COMMON NORMALS: patient oriented x3 SENSORIUM/ORIENTATION: Yes alert Skin: COMMON NORMALS: no rashes or lesions noted GENERAL SKIN EXAM: no rashes or lesions noted WOUNDS: Yes surgical site (clean and covered) Data : 04/09/20 16:00 04/10/20 06:13 A&P Assessment and plan (1) hypertension: blood pressure continues to be in the severe range. No proteinuria, no others signs of preeclampsia. Cardiology plans to add antihypertensive today patient threatening to leave AMA. If blood pressure controlled, plan on discharge tonight. Status: Acute Attestations Medical Necessity Statement*: The patient continues to be ill with severe hypertension. Time Spent in Patient Care: 16 - 35 minutes Coding Level of Care Code Acute Professor Of Sociology for Chg Fwd Diagnoses hypertension O16.5
--- NOTE | 2020-04-11 09:04 | PM.PN ---
Subjective Subjective: Interval history: We tried to give her a higher dose of labetalol last evening. Apparently she developed some bradycardia with a heart rate in the 40s. The blood pressures is in the 160s this morning. Denies any chest pain or shortness of breath. The swelling of the lower extremities is almost gone. Patient is badly wanting to go home. Medications: Reviewed: Yes Medication Review Details: Current Medications Enalapril Maleate (Enalapril 10 Mg Tablet) 10 mg PO BID [facility] Last Admin: 04/11/20 09:11 Dose: 10 mg Documented by: Hydrochlorothiazide (Hydrochlorothiazide 25 Mg Tablet) 25 mg PO DAILY [facility] Last Admin: 04/11/20 09:11 Dose: 25 mg Documented by: Labetalol HCl (Labetalol 200 Mg Tablet) 300 mg PO Q8H [facility] Last Admin: 04/11/20 09:11 Dose: 300 mg Documented by: Potassium Chloride (Potassium Chloride Er 10 Meq Tablet) 10 meq PO DAILY [facility] Last Admin: 04/11/20 09:11 Dose: 10 meq Documented by: Vitals/I&O/Wt Last Vital Signs Temp 97.3 F L 04/11/20 07:10 Pulse 77 04/11/20 07:10 Resp 14 04/11/20 07:10 BP 165/94 04/11/20 07:10 Pulse Ox 97 04/11/20 07:10 04/10/20 04/11/20 04/11/20 22:59 06:59 14:59 Intake Total 480 / 960 120 / 120 Output Total 1950 / 5200 3120 / 8320 Balance -1470 / -4240 -3120 / -7360 120 / 120 Weight last 48 hrs Weight 299 lb Physical Exam Narrative: EXAM NARRATIVE: GENERAL: The patient is alert and oriented times three. Not in any acute distress. HEENT: No significant pallor, icterus or lymphadenopathy.Oral cavity: There are no mucous membrane lesions. NECK: Trachea appears to be central. No masses noted. No JVD or thyromegaly appreciated. RESPIRATORY: Chest is symmetrical. No intercostals muscle retraction or any accessory muscle activation. There is no chest wall tenderness. Breath sounds are heard bilaterally. No rales or rhonchi heard. No evidence of any consolidation. BREASTS: Deferred. HEART: The heart sounds are normal. No S3 or S4. No significant murmurs. No pericardial rub ABDOMEN: No vessel pulsations or distention. No tenderness. No organomegaly appreciated. Bowel sounds are normally heard. : Deferred. RECTAL: Deferred. LYMPHATIC: No lymphadenopathy noted in the neck or groin. EXTREMITIES: Trace edema. No cyanosis. MUSCULOSKELETAL: No acute joint deformities or swelling SKIN: There are no significant rashes or ecchymosis NEUROPSYCHIATRIC: The patient is alert and oriented x3. Appears to be in a good mood. No tremors or rigidity noted. Data : 04/09/20 16:00 04/10/20 06:13 A&P Assessment and plan (1) Acute diastolic heart failure: The heart failure is getting compensated. She has no evidence of proteinuria. No liver injury or kidney injury. Platelet counts are within normal limits. We will repeat the BMP today. Status: Acute (2) hypertension: After discussing with Dr. Montanez, it was decided to start her on enalapril 10 mg p.o. twice daily. Also may start her on HCTZ 25 mg p.o. daily. Discontinue the Lasix. Continue the labetalol 300 mg p.o. 3 times a day. Status: Acute (3) Anemia: Management as per the primary Status: Acute Additional A&P Information Patient blood pressure will be closely monitored. If the patient continues to remain stable and blood pressure getting under control, may be discharged home this afternoon. Attestations Medical Necessity Statement*: Possible discharge home this evening Coding Level of Care Code Acute Natural Resources Professor for Geena Kirsten Diagnoses Acute diastolic heart failure I50.31 hypertension O16.5 Anemia D64.9
[2020-04-11] MEDS: labetalol 200 mg Tablet 300 MG PO ×2 (09:11→15:43)
[2020-04-11] MEDS: hydroCHLOROthiazide 25 mg Tablet PO (09:11)
[2020-04-11] MEDS: potassium chloride ER 10 mEq Tablet PO (09:11)
[2020-04-11 09:25] LABS: Anion Gap 15.7 (5-19); Blood Urea Nitrogen 14 mg/dL (6-20); Calcium 9.3 mg/dL (8.5-10.5); Carbon Dioxide 25 mmol/L (22-29); Chloride 105 mmol/L (98-107); Glomerular Filtration Rate 79.8 mL/min (90-130); Glucose 92 mg/dL (65-115); Osmolality Calculated 294 mOsm/kg (285-295); Potassium 3.7 mmol/L (3.5-5.1); Sodium 142 mmol/L (136-145)
--- NOTE | 2020-04-11 16:00 | PM.OBGYPN ---
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 she is doing much better. She doesn't have any complaints and desperately wants to go home. She feels like the elevated blood pressures are due to anxiety and that she would do much better at home. She has a home blood pressure cuff and will return for any problems. Vitals/I&O/Wt Last Vital Signs Temp 98.1 F 04/11/20 15:43 Pulse 84 04/11/20 15:43 Resp 26 H 04/11/20 15:43 BP 164/94 04/11/20 15:43 Pulse Ox 97 04/11/20 15:43 04/11/20 04/11/20 04/11/20 06:59 14:59 22:59 Intake Total 480 / 480 Output Total 3120 / 8320 1999 Balance -3120 / -7360 -1520 / -1520 Data : 04/09/20 16:00 04/11/20 09:00 Attestations Medical Necessity Statement*: The patient has been here for 2 midnights and is stable enough to go home Time Spent in Patient Care: less than 15 minutes Coding Level of Care Code Acute Production Supervisor for Herman Curtis
--- NOTE | 2020-04-11 16:10 | PM.DCS ---
Discharge Providers Date of Admission: 04/09/20 19:47 Date of Discharge: April 11, 2020 Attending Provider at Admission: Laura Montanez MD Attending Provider at Discharge: Laura Montanez MD Primary Care Provider: ULISSES Coronel Diagnoses at Discharge Discharge Diagnosis (1) Acute diastolic heart failure: Status: Acute (2) hypertension: Status: Acute (3) Anemia: Status: Acute Reason for Visit Reason for Visit: low 02/ neg for covid Hospital Course Hospital Course The patient was presented to the ER with new onset shortness of air. She was four days after a prolonged induction and section. The patient said that her O2 saturation was low at home at 87%. She was found to have pulmonary edema on imaging and the heart enlarged. She was thought to have cardiomyopathy. Cardiology was consulted and the patient admitted. She had an echocardiogram done which was normal. She had an ejection fraction of 58%. This is likely due to her pulmonary status. She was started on labetalol. Her blood pressures were not well controlled. When the labetalol was increased, she had bradycardia. Enalapril and HCTZ were started and her blood pressures improved while her pulse was also normal. She was discharged home in stable condition. She will take her blood pressure at home and return for elevated blood pressures, head ache, RUQ pain, shortness of air or any other concerning symptom. Discharge Data Data Completed and Pending: Completed Studies During Hospitalization Category Date Time Status CT angio chest PE protcl [id number] Stat Cat Scan 04/09/20 17:47 Completed XR chest 1V audie ble [id number] Urgent Exams 04/09/20 16:05 Completed CV echo complete* [id number] Urgent Ultrasound 04/09/20 19:16 Completed Labs from last 24 hours 04/11/20 09:00 Sodium 142 Potassium 3.7 Chloride 105 Carbon Dioxide 25 Anion Gap 15.7 BUN 14 Creatinine 0.9 GFR Calculation 79.8 L Glucose 92 Calculated Osmolal ity 294 Calcium 9.3 Vitals: Last Vital Signs Temp 98.1 F 04/11/20 15:43 Pulse 84 04/11/20 15:43 Resp 26 H 04/11/20 15:43 BP 164/94 04/11/20 15:43 Pulse Ox 97 04/11/20 15:43 Discharge Plan Discharge Patient Disposition: Home Condition: Stable Prescriptions: New enalapril maleate 10 mg Tablet 10 mg PO BID PRN (Reason: hypertension) Qty: 60 RF: 3 hydrochlorothiazide 25 mg Tablet 25 mg PO DAILY Qty: 30 RF: 3 potassium chloride 10 mEq Tablet Extended Release 10 meq PO DAILY Qty: 30 RF: 3 labetalol 200 mg Tablet 300 mg PO Q8H Qty: 180 RF: 3 Continued levothyroxine 88 mcg Tablet 88 mcg PO DAILY@0800 RF: 0 ibuprofen 600 mg Tablet 600 mg PO Q6H PRN (Reason: Pain) RF: 0 oxycodone 5 mg Tablet 5 mg PO Q4H PRN (Reason: Pain) RF: 0 amoxicillin 125 mg PO DAILY@0800 RF: 0 Discontinued labetalol 200 mg Tablet 200 mg PO Q8H RF: 0 Discharge Orders: Discharge Order (Routine); Ordered 04/11/20 Ordered By: Laura Montanez Referrals: Samson Rodriguez MD [Physician] - Discharge Diet: Regular Discharge Activity: Resume usual activity Discharge Attestations Time Spent in Discharge Care*: less than 30 min Quality Metrics Clinical Quality Measures During this hospital stay, did patient experience: None Coding Level of Care Code Acute 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
== END 2020-04-11 17:17 | disposition home or self-care (01) | DRG 776 ==
LOC: ER 15:38 → CSU 19:56
PROVIDERS: Internal Medicine Cardiovascular Disease; Admitting Provider Obstetrics & Gynecology; Emergency Provider Family Medicine; PCP Nurse Practitioner Family; Visit Provider Obstetrics & Gynecology
DX: O16.5 Unspecified maternal hypertension, complicating the puerperium (principal); I50.31 Acute diastolic (congestive) heart failure; O99.215 Obesity complicating the puerperium; O90.81 Anemia of the puerperium; E66.01 Morbid (severe) obesity due to excess calories; D64.9 Anemia, unspecified; R00.1 Bradycardia, unspecified; T44.8X5A Adverse effect of centrally-acting and adrenergic-neuron-blocking agents, initial encounter; O90.89 Other complications of the puerperium, not elsewhere classified; O90.3 Peripartum cardiomyopathy
CPT/HCPCS: 12345; 36415; 36416; 71045; 71275; 80048; 80053; 81001; 82962; 83605; 83880; 85025; 85378; 85610; 87426; 87804; 93005; 93306; 99282; J1940; Q9967

== ENCOUNTER → 2021-02-19 17:40 | Outpatient (BNVA) | payer BC, MEDICAID, SELFPAY | PROVIDERS: PCP Nurse Practitioner Family; Visit Provider Nurse Practitioner Family | DX: Z20.822 Contact with and (suspected) exposure to COVID-19 (principal) | CPT/HCPCS: 87635 ==

== ENCOUNTER → 2021-08-06 13:44 | Outpatient (BNVA) | payer BC, MEDICAID, SELFPAY | PROVIDERS: PCP Nurse Practitioner Family; Visit Provider Obstetrics & Gynecology | DX: Z01.419 Encounter for gynecological examination (general) (routine) without abnormal findings (principal); E03.9 Hypothyroidism, unspecified | CPT/HCPCS: 83525; 84443; 88175 ==

== ENCOUNTER → 2021-10-29 07:58 | Outpatient (BNVA) | payer BC, MEDICAID, SELFPAY | PROVIDERS: PCP Nurse Practitioner Family; Visit Provider Obstetrics & Gynecology | DX: E03.9 Hypothyroidism, unspecified (principal) | CPT/HCPCS: 83525 ==

== ENCOUNTER → 2022-04-12 16:08 | Outpatient (BNVA) | payer OTHER, SELFPAY | PROVIDERS: PCP Nurse Practitioner Family; Visit Provider Nurse Practitioner Family | DX: R68.89 Other general symptoms and signs (principal); U07.1 COVID-19; K59.01 Slow transit constipation | CPT/HCPCS: 87400; 87426 ==

== ENCOUNTER → 2022-06-15 13:36 | Outpatient (BNVA) | payer OTHER, MEDICAID, SELFPAY | PROVIDERS: PCP Nurse Practitioner Family; Visit Provider Emergency Medicine | DX: J02.9 Acute pharyngitis, unspecified (principal); J02.0 Streptococcal pharyngitis; Z33.1 Pregnant state, incidental | CPT/HCPCS: 87880 ==

== ENCOUNTER → 2023-07-02 16:32 | Outpatient (BNVA) | payer OTHER, MEDICAID, SELFPAY | PROVIDERS: PCP Nurse Practitioner Family; Visit Provider Emergency Medicine | DX: J02.9 Acute pharyngitis, unspecified (principal) | CPT/HCPCS: 87071; 87880 ==